=== PATIENT | male | born 2000 | race Caucasian/White ===

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

== ENCOUNTER 2023-06-23 13:00 | Emergency (ER) | payer MEDICAID ==
[~2023-06-23] VITALS: Ht 180.3 cm; Wt 79.2 kg
[2023-06-23 14:27] VITALS: BP 129/78; PULSE 86; RESP 16; TEMP 99.4; O2SAT 98
[2023-06-23] MEDS: cefTRIAXone SOD 1,000 MG VL IM ONE (14:55)
[2023-06-23] MEDS ORDERED: TOB03OS OP (15:15)
[2023-06-23] MEDS ORDERED: AZIT500T66 PO (15:15)
== END 2023-06-23 15:18 | disposition home or self-care (01) ==
LOC: ER 13:00
DX: J03.90 Acute tonsillitis, unspecified (principal); H10.31 Unspecified acute conjunctivitis, right eye; Z79.2 Long term (current) use of antibiotics
CPT/HCPCS: 96372; 99283; J0696

== ENCOUNTER 2023-06-29 11:20 | Emergency (ER) | payer MEDICAID ==
[~2023-06-29] VITALS: Ht 180.3 cm; Wt 78.3 kg
[~2023-06-29 11:20] MED LIST: AZIT500T66 PO; TOB03OS OP
[2023-06-29 13:27] VITALS: BP 140/73; PULSE 64; RESP 18; TEMP 97.6; O2SAT 99
[2023-06-29] MEDS ORDERED: LORA-622 PO (14:55)
[2023-06-29] MEDS ORDERED: NEOM0.1O7 OP (14:55)
== END 2023-06-29 14:58 | disposition home or self-care (01) ==
LOC: ER 11:20
DX: H10.31 Unspecified acute conjunctivitis, right eye (principal); F12.10 Cannabis abuse, uncomplicated